=== PATIENT | female | born 1965 | race American Indian/Alaskan Native ===

== ENCOUNTER 2017-02-15 08:11 | Outpatient (CLI) | payer MEDICAID, OTHER ==
--- NOTE | 2017-02-18 09:21 | Mammography Report ---
Bilateral diagnostic mammogram and sonogram right breast: Compared to 01/27/15. CAD study utilized. History: Palpable area at 12:00 position right breast. Findings: Breast parenchyma bilaterally. No mass or microcalcification. Benign axillary nodes. Sonogram of upper right breast reveals multiple benign cysts. The largest measures 2.4 x 1.1 x 2 cm. The smallest measures 1 x 0.8 x 1.3 cm. Cysts are identified between between 9:00 and 1:00. Number cysts identified are 5. Impression: Benign cysts right breast. Benign findings. Annual followup with mammogram and sonogram may be recommended. BI-RADS CATEGORY: 2 = Benign ACR BI-RADS MAMMOGRAPHIC CODES: 0 = Needs additional imaging evaluation; 1 = Negative; 2 = Benign; 3 = Probably benign; 4 = Suspicious; 5 = Malignant; 6 = Known biopsy-proven malignancy COMMENT: 1. Dense breast tissue, i.e., adenosis, fibrocystic changes, etc., may obscure an underlying neoplasm. 2. Approximately 10% of cancers are not detected with mammography. 3. A negative mammography report should not delay biopsy if a clinically suspicious mass is present. COMMENT: Patient follow-up letters are generated in [employer]. [place]
== END 2017-02-15 08:12 | disposition home or self-care (01) ==
LOC: MAMMO 08:11
PROVIDERS: ATTEND Obstetrics & Gynecology
DX: N60.01 Solitary cyst of right breast (principal); N63 Unspecified lump in breast
CPT/HCPCS: 76642; G0204; 77066